=== PATIENT | female | born 1975 | race Hispanic/Latino ===

== ENCOUNTER 2020-08-12 21:01 | Emergency (ER) | payer BC ==
[~2020-08-12] VITALS: Ht 157.5 cm; Wt 70.9 kg
[2020-08-12] MEDS ORDERED: LEVOTHYROXIN75 MCG PO (21:33)
[2020-08-12] MEDS ORDERED: ZITHROMAX250 MG PO (21:34)
[2020-08-12] MEDS ORDERED: VENTOLIN HFA IN (21:34)
[2020-08-12] MEDS ORDERED: SYMBICORT 80-4.5MCG IN (21:35)
[2020-08-12 21:45] VITALS: BP 130/75
[2020-08-12 21:52] LABS: HEMATOCRIT 37.2 % (37.0-47.0); IMMATURE GRANULOCYTES 0.4 % (0.0-5.0); MEAN CELL VOLUME 92.5 fL CALC (80.0-100.0); MEAN CORPUSCULAR HGB 29.9 pG CALC (26.0-32.0); MEAN CORPUSCULAR HGB CONC 32.3 g/dL CAL (32.0-36.0); NEUT# 4.04 thou/uL (2.00-7.15); RED BLOOD COUNT 4.02 mill/uL (4.20-5.60); RED CELL DISTRI WIDTH 14.2 % (11.5-15.5)
[2020-08-12 22:09] LABS: ALBUMIN 3.8 g/dL (3.2-5.0); ALKALINE PHOSPHATASE 74 u/l (38-126); ANION GAP 11 (6-22 (CALC)); BILIRUBIN, TOTAL 0.4 mg/dL (0.0-1.4); BUN 8 mg/dL (7-17); BUN/CREATININE RATIO 10 (12-20 (CALC)); CARBON DIOXIDE 26 mmol/l (22-30); CHLORIDE 103 mmol/l (95-108); CREATININE 0.8 mg/dL (0.5-1.0); GFR > 60 ML/MIN (>=60 (CALC)); GFR FOR AFR.AMER. > 60 ML/MIN (>=60 (CALC)); POTASSIUM 3.5 mmol/l (3.5-5.1); SGOT/AST 37 u/l (14-36); SODIUM 137 mmol/l (137-146)
[2020-08-12 22:19] LABS: TOTAL PROTEIN 7.3 g/dL (6.3-8.2)
[2020-08-13 00:16] LABS: URINE BILIRUBIN - DIPSTICK NEGATIVE (NEGATIVE); URINE BLOOD DIPSTICK NEGATIVE (NEGATIVE); URINE COLOR YELLOW; URINE GLUCOSE - DIPSTICK NEGATIVE (NEGATIVE); URINE KETONE NEGATIVE (NEGATIVE); URINE LEUK ESTERASE NEGATIVE (NEGATIVE); URINE NITRITE - DIPSTICK NEGATIVE (Negative); URINE PROTEIN - DIPSTICK NEGATIVE (NEG-TRACE); URINE UROBILINOGEN - DIPSTICK 0.2 E.U./dL (0.2)
[2020-08-13] MEDS ORDERED: VOLTAREN - GENE75 MG PO (00:20)
[2020-08-13] MEDS ORDERED: PEPCID20 MG PO (00:20)
== END 2020-08-13 00:25 | disposition home or self-care (01) | DRG 179 ==
LOC: ED 21:01
PROVIDERS: Family Medicine
DX: U07.1 COVID-19 (principal); R10.13 Epigastric pain

== ENCOUNTER 2020-12-18 18:26 | Emergency (ER) | payer BC ==
[~2020-12-18] VITALS: Ht 157.5 cm; Wt 70.9 kg
[~2020-12-18 18:26] MED LIST: LEVOTHYROXIN75 MCG PO; PEPCID20 MG PO; SYMBICORT 80-4.5MCG IN; VENTOLIN HFA IN; VOLTAREN - GENE75 MG PO; ZITHROMAX250 MG PO
[2020-12-18] MEDS ORDERED: KEFLEX500 MG PO (19:31)
[2020-12-18] MEDS ORDERED: BACTRIM DS1 TAB PO (19:31)
[2020-12-18 19:41] VITALS: BP 130/87
== END 2020-12-18 19:41 | disposition home or self-care (01) | DRG 603 ==
LOC: ED 18:26
PROC: 0H95XZZ Drainage of Chest Skin, External Approach (ICD-10-PCS; principal; 2020-12-18)
DX: L02.213 Cutaneous abscess of chest wall (principal)